=== PATIENT | male | born 1995 | race Caucasian/White ===

== ENCOUNTER 2020-06-05 16:15 | Emergency (ER) | payer BC, OTHER ==
[2020-06-05 18:18] LABS: HEMOGLOBIN 14.4 gm/dl (14.0-17.5); RED BLOOD COUNT 5.1 M/UL (4.20-5.50); WHITE BLOOD COUNT 6.9 K/UL (4.5-11.0)
[2020-06-05 18:39] LABS: BUN/CREATININE RATIO 16 (0-10)
== END 2020-06-06 00:15 | disposition home or self-care (01) ==
LOC: ER1 16:15
PROVIDERS: Physician Assistant Medical
DX: R51.9 Headache, unspecified (principal); R42 Dizziness and giddiness
CPT/HCPCS: 70450; 70490; 70496; 70498; 71045; 80053; 84484; 85025; 85379; 85610; 85730; 93005; 96374; 96375; 99285; J1100; J1885; J2765; J7040; Q9967

== ENCOUNTER 2020-11-09 00:34 | Emergency (ER) | payer BC ==
[2020-11-09 01:27] LABS: RED BLOOD COUNT 5.27 M/UL (4.20-5.50); WHITE BLOOD COUNT 7.1 K/UL (4.5-11.0)
[2020-11-09 01:58] LABS: BUN/CREATININE RATIO 15 (0-10)
== END 2020-11-09 03:44 | disposition home or self-care (01) ==
LOC: ER1 00:34
PROVIDERS: Physician Assistant
DX: R55 Syncope and collapse (principal); R07.9 Chest pain, unspecified; R06.00 Dyspnea, unspecified; Z20.822 Contact with and (suspected) exposure to COVID-19
CPT/HCPCS: 70496; 70498; 71045; 80053; 82550; 82553; 83874; 83880; 84484; 85025; 93005; 99285; Q9967; U0002